=== PATIENT | male | born 1985 | race Caucasian/White ===

== ENCOUNTER 2017-07-26 00:39 | Inpatient (IN) | payer OTHER ==
[~2017-07-26] VITALS: Ht 177.8 cm; Wt 104.7 kg
[~2017-07-26 00:39] MED LIST: LISI-725 PO; MULT-506 PO
[2017-07-26 01:10] LABS: BASO % 0.6 %; BASO ABS # 0.06 K/uL (0-0.2); COMPLETE YES; HEMATOCRIT 49.5 % (42-52); IG% 0.2 %; LYMPH % 37.9 %; LYMPH ABS # 3.65 K/uL (1.2-3.4); MEAN CELL VOLUME 91.8 fL (80-100); MEAN CORPUSCULAR HEMOGLOBIN 34.3 pg (25-34); MEAN CORPUSCULAR HGB CONC 37.4 g/dl (32-36); MEAN PLATELET VOLUME 10.1 fL (7.4-10.4); MONO % 7.8 %; NEUT % 51.5 %; PLATELET COUNT 292 K/uL (130-400); RED BLOOD COUNT 5.39 M/uL (4.7-6.1); WHITE BLOOD COUNT 9.62 K/uL (4.8-10.8)
[2017-07-26 01:11] LABS: URINE APPEARANCE CLOUDY (CLEAR); URINE BILIRUBIN NEG (NEG); URINE COLOR YELLOW; URINE NITRITE NEG (NEG); URINE PH 5.5 (4.5-7.5); URINE SPECIFIC GRAVITY 1.011 (1.000-1.030); UROBILINOGEN NEG (NEG); ZZUR CULT IF INDIC CLEAN CATCH YES
[2017-07-26 01:12] LABS: MANUAL MICROSCOPIC REQUIRED? YES; REVIEW REQ? NO
[2017-07-26 01:29] LABS: ALT/SGPT 42 U/L (12-78); AST/SGOT 31 U/L (15-37); BLOOD UREA NITROGEN 7 mg/dl (7-18); BUN/CREATININE RATIO 7.8 (10-20); CALCIUM 8.2 mg/dl (8.5-10.1); CARBON DIOXIDE 27 mmol/L (21-32); CHLORIDE 104 mmol/L (98-107); CREATININE 0.92 mg/dl (0.60-1.40); GLUCOSE 97 mg/dl (70-99); POTASSIUM 3.9 mmol/L (3.5-5.1); SODIUM 138 mmol/L (136-145)
[2017-07-26 01:36] LABS: BENZODIAZEPINE, URINE NEG (NEG); COCAINE,URINE NEG (NEG); PHENCYCLIDINE, URINE NEG (NEG)
[2017-07-26 01:40] LABS: ALKALINE PHOSPHATASE 85 U/L (45-117)
[2017-07-26 01:46] LABS: ACETAMINOPHEN < 2 ug/ml (10-30)
[2017-07-26] MEDS ORDERED: POTA99TA PO (01:59)
[2017-07-26 02:00] LABS: URINE BACTERIA 1+ (NEG); URINE RBC 0-4 /hpf (0-4); URINE WBC >30 /hpf (0-5)
--- NOTE | 2017-07-26 05:39 | EMERGENCY ROOM VISIT NOTE ---
History Report prepared by Marcoibparminder: Jaime Valentine Under the Supervision of: Dr. Maggie Yeager M.D. First contact with patient: 00:49 Chief Complaint: MENTAL HEALTH EVALUATION Stated Complaint: MR History of Present Illness The patient is a 32 year old male who presents to the Emergency Room with complaints of persistent suicidal ideation beginning nearly a year ago. The patient admits to sending text messages to his ex- which proclaimed suicidal ideation. He states "I have no reason to be alive". He has never seen a psychiatrist before. The patient states that he has been struggling with these thoughts ever since his marriage ended four months ago. He states that he has still been in touch with his ex- due to having children with her. He states that he has joint custody of the children, and moves them between households. The patient states "I just felt like my children would be better off without me". He states that he has had thoughts of jumping in front of a truck, and had a plan to shoot himself. He is unsure why he has not hurt himself yet. The patient admits to drinking 6-7 beers today. He states that he drinks often, but less than he used to. He denies any other drug use. He smokes a pack of cigarettes per day. Source of History: patient Onset: Nearly a year ago Quality: other (suicidal ideation) Timing: other (persistent) Review of Systems See HPI for pertinent positives & negatives. A total of 10 systems reviewed and were otherwise negative. Past Medical & Surgical Medical Problems: (1) PETER (generalized anxiety disorder) (2) HTN (hypertension) Social History Problems: (1) Alcohol abuse Family History No pertinent family history stated. Social History Smoking Status: Current Every Day Smoker Marital Status: Housing Status: lives alone Occupation Status: employed Current/Historical Medications Scheduled Lisinopril (Zestril), 20 MG PO DAILY Potassium (Potassium), 99 MG PO DAILY Allergies Coded Allergies: Penicillins (Verified Allergy, Unknown, unknown, 07/26/17) Physical Exam Vital Signs Date Time Temp Pulse Resp B/P (MAP) Pulse Ox O2 Delivery O2 Flow Rate FiO2 07/26/17 06:59 75 16 132/84 96 Room Air 07/26/17 02:35 73 18 123/89 96 Room Air 07/26/17 00:41 36.4 78 20 132/90 97 Room Air Physical Exam Vital signs reviewed. Psych: positive suicidal ideation. Negative homicidal ideation. Positive access to weapons. General: Well-appearing male, in no significant distress. Appears to be intoxicated. HEENT: No scleral icterus, PERRLA, neck supple. Atraumatic. Cardiovascular: Regular rate and rhythm, no extra sounds. Pulmonary: Clear to auscultation bilaterally, normal work of breathing. Abdomen: Soft, nontender, nondistended, positive bowel sounds. Musculoskeletal: Atraumatic, no peripheral edema. Neurologic: Patient awake alert and oriented x 3 Skin: Warm, dry, no rash Medical Decision & Procedures Laboratory Results 07/26/17 00:58 Red Blood Count 5.39, Mean Corpuscular Volume 91.8, Mean Corpuscular Hemoglobin 34.3, Mean Corpuscular Hemoglobin Concent 37.4, Mean Platelet Volume 10.1, Neutrophils (%) (Auto) 51.5, Lymphocytes (%) (Auto) 37.9, Monocytes (%) (Auto) 7.8, Eosinophils (%) (Auto) 2.0, Basophils (%) (Auto) 0.6, Neutrophils # (Auto) 4.95, Lymphocytes # (Auto) 3.65, Monocytes # (Auto) 0.75, Eosinophils # (Auto) 0.19, Basophils # (Auto) 0.06 07/26/17 00:58 Test 07/26/17 00:55 07/26/17 00:58 Urine Color YELLOW Urine Appearance CLOUDY (CLEAR) Urine pH 5.5 (4.5-7.5) Urine Specific [place] 1.011 (1.000-1.030) Urine Protein NEG (NEG) Urine Glucose (UA) NEG (NEG) Urine Ketones NEG (NEG) Urine Occult Blood NEG (NEG) Urine Nitrite NEG (NEG) Urine Bilirubin NEG (NEG) Urine Urobilinogen NEG (NEG) Urine Leukocyte Esterase MODERATE (NEG) Urine WBC (Auto) /hpf (0-5) Urine RBC (Auto) /hpf (0-4) Urine Hyaline Casts (Auto) /lpf (0-5) Urine Epithelial Cells (Auto) /lpf (0-5) Urine Bacteria (Auto) (NEG) Urine RBC 0-4 /hpf (0-4) Urine WBC >30 /hpf (0-5) Urine Epithelial Cells >30 /lpf (0-5) Urine Bacteria 1+ (NEG) Urine Opiates Screen NEG (NEG) Urine Methadone, Qualitative NEG (NEG) Urine Barbiturates NEG (NEG) Urine Phencyclidine (PCP) Level NEG (NEG) Ur Amphetamine/Methamphetamine NEG (NEG) MDMA (Ecstasy) Screen NEG (NEG) Urine Benzodiazepines Screen NEG (NEG) Urine Cocaine Metabolite NEG (NEG) Urine Marijuana (THC) NEG (NEG) White Blood Count 9.62 K/uL (4.8-10.8) Red Blood Count 5.39 M/uL (4.7-6.1) Hemoglobin 18.5 g/dL (14.0-18.0) Hematocrit 49.5 % (42-52) Mean Corpuscular Volume 91.8 fL (80-100) Mean Corpuscular Hemoglobin 34.3 pg (25-34) Mean Corpuscular Hemoglobin Concent 37.4 g/dl (32-36) Platelet Count 292 K/uL (130-400) Mean Platelet Volume 10.1 fL (7.4-10.4) Neutrophils (%) (Auto) 51.5 % Lymphocytes (%) (Auto) 37.9 % Monocytes (%) (Auto) 7.8 % Eosinophils (%) (Auto) 2.0 % Basophils (%) (Auto) 0.6 % Neutrophils # (Auto) 4.95 K/uL (1.4-6.5) Lymphocytes # (Auto) 3.65 K/uL (1.2-3.4) Monocytes # (Auto) 0.75 K/uL (0.11-0.59) Eosinophils # (Auto) 0.19 K/uL (0-0.5) Basophils # (Auto) 0.06 K/uL (0-0.2) RDW Standard Deviation 40.0 fL (36.4-46.3) RDW Coefficient of Variation 11.8 % (11.5-14.5) Immature Granulocyte % (Auto) 0.2 % Immature Granulocyte # (Auto) 0.02 K/uL (0.00-0.02) Anion Gap 7.0 mmol/L (3-11) Est Creatinine Clear Calc Drug Dose 138.4 ml/min Estimated GFR () 126.2 Estimated GFR (Non- 108.9 BUN/Creatinine Ratio 7.8 (10-20) Calcium Level 8.2 mg/dl (8.5-10.1) Total Bilirubin 0.3 mg/dl (0.2-1) Direct Bilirubin < 0.1 mg/dl (0-0.2) Aspartate Amino Transf (AST/SGOT) 31 U/L (15-37) Alanine Aminotransferase (ALT/SGPT) 42 U/L (12-78) Alkaline Phosphatase 85 U/L (45-117) Total Protein 7.8 gm/dl (6.4-8.2) Albumin 3.9 gm/dl (3.4-5.0) Thyroid Stimulating Hormone (TSH) 5.690 uIu/ml (0.300-4.500) Salicylates Level 3.1 mg/dl (2.8-20) Acetaminophen Level < 2 ug/ml (10-30) Ethyl Alcohol mg/dL 205.0 mg/dl (0-3) Laboratory results per my review. ED Course 0106: Past medical records reviewed. The patient was evaluated in room A7. A complete history and physical examination was performed. 0640: The patient was accepted at [address] [place] [address]. He will be evaluated for further management. Medical Decision Differential diagnosis: Etiologies such as mood disorder, infection, hypoglycemia, electrolyte abnormalities, cardiac sources, intracerebral event, toxicologic, neurologic, as well as others were entertained. This patient was evaluated and appeared to be in no significant distress. Patient's blood alcohol is just over 200. He was observed in the emergency department until he was medically cleared. Mental health evaluated the patient and inpatient treatment is recommended. The patient was signed in on a voluntary basis. He was accepted to [facility]. Medication Reconcilliation Current Medication List: was personally reviewed by me Blood Pressure Screening Patient's blood pressure: Normal blood pressure Blood pressure disposition: Did not require urgent referral Impression Primary Impression: Suicidal ideation Additional Impression: Alcohol intoxication Scribe Attestation The scribe's documentation has been prepared under my direction and personally reviewed by me in its entirety. I confirm that the note above accurately reflects all work, treatment, procedures, and medical decision making performed by me. Departure Information Dispostion [facility] ([address] [place] [address]) Referrals No Doctor, Assigned (PCP) Forms HOME CARE DOCUMENTATION FORM, IMPORTANT VISIT INFORMATION Patient Instructions My [facility] Problem Qualifiers
[2017-07-26 06:59] VITALS: O2SAT 96
[2017-07-26 07:41] VITALS: BP 132/84; PULSE 88; TEMP 36.4; Ht 177.8 cm; Wt 104.7 kg
[2017-07-26] MEDS ORDERED: LORAZEPAM 1 MG TAB PO PRN (08:00)
[2017-07-26] MEDS ORDERED: ACETAMINOPHEN 325 MG TAB PO PRN (08:00)
[2017-07-26] MEDS ORDERED: BISMUTH SUBSALICYLATE PER ML OMNICELL CHARGE PO PRN (08:00)
[2017-07-26] MEDS ORDERED: NICOTINE POLACRILEX 2 MG GUM MT PRN (08:00)
[2017-07-26] MEDS ORDERED: ALUMINUM/MAGNESIUM SUSP 30 ML UDC PO PRN (08:00)
[2017-07-26] MEDS ORDERED: hydrOXYzine HCL 25 MG TAB PO PRN ×2 (08:00)
[2017-07-26] MEDS ORDERED: SODIUM CHLORIDE 0.65% NA SOLN 45 ML (OCEAN) PRN (08:00)
[2017-07-26] MEDS ORDERED: MAGNESIUM HYDROXIDE SUSP 30 ML UDC PO PRN (08:00)
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
[2017-07-26] MEDS: LISINOPRIL 20 MG TAB PO SCH (09:09)
[2017-07-26] MEDS: NICOTINE 21 MG/24 HR TDSY TD SCH (09:09)
[2017-07-26] MEDS ORDERED: SERTRALINE HCL 50 MG TAB PO ONE (09:56)
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
[2017-07-26 13:01] VITALS: BP 147/95; PULSE 89; TEMP 36.9
[2017-07-26 16:00] VITALS: BP 155/91; PULSE 71; TEMP 36.8
[2017-07-26 22:12] VITALS: BP 138/87; PULSE 64; TEMP 36.5
[2017-07-27 06:44] VITALS: BP_SYST 124; BP_SYST 130; BP_DIAS 78; BP_DIAS 91; PULSE 73; PULSE 83; TEMP 36.9
[2017-07-27 08:01] VITALS: BP 136/86; PULSE 66; TEMP 36.8
[2017-07-27] MEDS: POTASSIUM GLUCONATE 99 MG PO SCH (08:49)
[2017-07-27] MEDS: LISINOPRIL 20 MG TAB PO SCH (08:50)
[2017-07-27] MEDS: NICOTINE 21 MG/24 HR TDSY TD SCH (08:51)
[2017-07-27] MEDS ORDERED: POTASSIUM 99 MG PO SCH (09:00)
[2017-07-27] MEDS ORDERED: SERTRALINE HCL 100 MG TAB PO SCH (09:00)
--- NOTE | 2017-07-27 11:17 | Psychiatric Progress Notes ---
Progress Note Date of Service Jul 27, 2017. Interval History Luigi Saldivar is a 32-year-old male from [facility], who was brought to the ED by the police after texting suicidal messages to his ex . He is admitted on a 201, with a back up 302 petitioner's statement from the civil engineering manager. Chief Complaint "I'm fine". Subjective Patient was seen & assessed interval progress reviewed with Treatment Team. Staff report he has been refusing all groups, is irritable, and is focused on discharge, stating he does not want to miss work. He spent some time in the day room watching television with peers, and reported anxiety. His parents came to drop off belongings, but he did not want to visit with them. He initially did not want staff to talk to his family, but today signed a release to allow us to talk with his mother for collateral information. His mother told staff that she thinks he has been depressed for years, and that it got worse after his divorce. She notes he becomes easily frustrated and angry, and has noted decreased appetite, lack of enjoyment, decreased motivation, and social withdrawal. She has also noticed that he is obsessed with germs, does not like being touched, and does not like others going through his belongings. He is made statements to his mother that he is "tired and can't take it anymore, " but not suicidal statements. She is aware that he drinks alcohol, but has not noted excessive use. His father has but he did his gun, and is willing to secure his guns prior to discharge. Today, the patient states that his mood is "fine, I just want to get back home." He later states that it's a good thing he was admitted to the hospital, as he was able to start on medications for anxiety, and says "maybe I had issues I didn't know I had, they're there all the time, even if I don't think about them." He says he is willing to give medication a try, "even though it something I'm against," but continues to refuse therapy, stating "I'm not big on sitting down and talking to people, therapy." He says he like to deal with his symptoms by decreasing alcohol use, as he recognizes that his drinking played a role, then says he doesn't really want to decrease how frequently he drinks, but just does not want to drink excessively. He notes that he tends to stay busy to distract himself from how he is feeling, and is missing that here. When we discussed his mother's observations about his depressive symptoms, he admits that this is likely accurate, but then quickly changes the subject, and talks about all the reasons that he doesn't need to be here. He is refusing a family meeting, stating he is "not interested in it," but when asked if anyone had explained what it entails to him, he says no. After discussing the goals of the family meeting, he continues to decline it, giving multiple reasons, including that he does not see his family very much, lives alone, and doesn't need them to help him. He says he has thought more about the recommendation to get the guns out of his home, and thinks he would be willing to do this, but then says there is no one that he "really trusts" to hold them for him. He denies symptoms of alcohol withdrawal and has not scored on the AWSS protocol, and denies side effects to medication. Sleep Information Total Hours of Sleep: 9.25 Meal Information Percent of Breakfast Consumed: 100 Percent of Lunch Consumed: 25 Percent of Dinner Consumed: 50 Mental Status Exam During interview pt is: alert and oriented, guarded Appearance: appropriately dressed, appropriately groomed Eye contact is: fair Motor behavior is: steady gait & station, no abnormal motor movements Speech: normal in rate, rhythm & volume Affect: depressed, anxious, constricted, other (incongruent with stated mood) Mood is: other ("fine") Thought process: goal directed Thought content: reality based without delusions Suicidal thought are: denied Homicidal thoughts are: denied Hallucinations: denies auditory, denies visual Cognition: attention grossly intact, language grossly intact Intelligence estimated to be: average Insight: impaired Judgement: impaired Impression 32 yo male who texted suicidal messages to his ex , with specific plans to use a gun, and has access to guns. His is now minimizing this, wanting to leave the hospital as soon as possible. He denies prolonged depression, but his mother reports he has been depressed for years, and that it worsened since his divorce. He did admit to chronic anxiety and OCD traits, and was willing to start and SSRI, so was started on sertraline on admission. Clearly alcohol has been a problem in the past, and is currently giving varying reports of his daily drinking, but also likely minimizing this. We have discussed recommendations for abstinence, and he is willing only to try not to drink excessively. He is refusing all groups, a family meeting, and refusing a referral for therapy. At this time he requires inpatient care due to the severity of his condition and the risk for suicide if discharged. Plan (1) Depressive disorder, not elsewhere classified 07/26 - Start Zoloft 25 mg. today increasing to 50 mg tomorrow. R/B/A reviewed and accepted including black box warning - Obtain supplemental information - Family meeting if indicated - Q 15 min checks for safety - Encourage participation in group and individual counseling - The patient will need psychiatric aftercare. 07/27 - Reviewed recommendations for a family meeting and what this would entail, but the patient is refusing. He did allow staff to talk with his mother, who reported years of depressive symptoms. - Recommend that family secure guns prior to discharge. - Increase sertraline to 100 mg daily for tomorrow. - Referred for psychiatric follow-up; he is refusing a referral for therapy. (2) PETER (generalized anxiety disorder) 07/26 - zoloft as above - Continue to explore the OCD traits - Assist the patient to explore mindfulness (3) Alcohol abuse 07/26 - The patient's AUDIT score suggests problematic drinking (Zone III WHO). Brief intervention was offered and accepted Intervention was greater than 5 min in length. Brief interventions include: 1. Assess Readiness to Quit, 2. Advise: Help Patient to Reduce or Abstain from Alcohol, 3. Agree: Set Specific, Feasible Goals, 4. Assist: Anticipate barriers, Problem-Solving Solutions. Social work to 5. Arrange: Referrals to appropriate treatment. Summary of intervention: The patient is in precontemplation stage with regards to transtheoretical model of change. The patient is advised to decrease alcohol consumption due to depressant effects and risk of interactions with prescription medications. The patient agreed to decrease consumption, and will be provided with recovery materials to continue to education self on how to cope with their condition without drinking. - AWSS 07/27 - denies symptoms of withdrawal and has not scored on on his, so will discontinue. (4) HTN (hypertension) 07/26 - Continue home dose of lisinopril - Monitor BP Has been reviewed with Dr. 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 Needs: To abstain from alcohol Risk Factors Assessment Male: Yes : Yes /single/: Yes Higher / Fall in social status: No Health problems: Yes Mental Health Diagnoses: No Substance use disorders: Yes Previous attempt: No Previous psychiatric stay: No Hopelessness: No Smoker: Yes Protective Factors Assessment Confucianism beliefs: No : No Responsible for young children: Yes Employed: Yes Stable relationships: No Supportive family: Yes Data Vital Signs Last 24 Hrs: Date Time Temp Pulse Resp B/P (MAP) Pulse Ox O2 Delivery O2 Flow Rate FiO2 07/27/17 08:01 36.8 66 16 136/86 07/27/17 06:44 36.9 73 17 124/78 83 130/91 07/26/17 22:12 36.5 64 16 138/87 07/26/17 16:00 36.8 71 18 155/91 07/26/17 13:01 36.9 89 18 147/95 Meds Administered Last 24 Hrs: Meds Administered (Past 24Hrs) Medications (Trade) Dose Ordered Sig/Rosalba Route Start Time Stop Time Status Last Admin Dose Admin Lisinopril (Zestril Tab) 20 mg DAILY PO 07/26/17 09:00 08/25/17 08:59 07/27/17 08:50 20 MG Nicotine (Nicoderm Cq 21MG Patch) 1 patch QAM TD 07/26/17 09:00 08/25/17 08:59 07/27/17 08:51 1 PATCH Sertraline HCl (Zoloft Tab) 50 mg QAM PO 07/27/17 09:00 08/26/17 08:59 07/27/17 08:50 50 MG Sertraline HCl (Zoloft Tab) 25 mg 0956 ONCE PO 07/26/17 09:56 07/26/17 10:01 DC 07/26/17 10:23 25 MG Potassium Gluconate (Potassium Gluconate) 99 mg QAM PO 07/27/17 09:00 08/26/17 08:59 07/27/17 08:49 99 MG
--- NOTE | 2017-07-27 22:40 | Medical Student: BHU Only ---
Psychiatric Progress Note Date of Service: Jul 27, 2017. SUBJECTIVE: The patient was seen and assessed today, and progress was reviewed with Treatment Team. The patient reports doing "fine". Sleep was "ok"; noted to be for 9 hours by staff. According to the staff notes, Osmin is refusing group programming, is irritable and focused on discharge. He grew anxious when we discussed the disturbance of his normal routine, and is especially concerned about missing work. His parents stopped by to drop off some belongings, he had no interest in visiting with them, however, he did sign a release allowing the staff to speak with his mother for collateral information. She denies Osmin ever making suicidal statements, but endorses Osmin being easily frustrated, having decreased appetite, and being more withdrawn since his divorce. She also endorses Osmin's obsession over germs. Osmin's mood is "fine, better if I were going home." Even though Osmin refuses group programming because he "doesn't feel like talking to anyone," he is still onboard with taking his new medication to treat his anxiety. "I'm glad I came to the hospital so I didn't end up hurting myself...maybe this helped me get help for my anxiety and OCD." Osmin wants to cut down on the amount of alcohol he consumes. He continues to minimize his alcohol abuse, saying that he doesn' t want to cut back on the frequency that he drinks, just the amount each time. He is also agreeable to removing firearms from the home, but does not know where he would trust moving them to yet. ROS: per HPI MSE: Appearance is that of a casually dressed male who appears his stated age. The patient is generally cooperative with the interview, but irritable and short with answers. Eye contact is fair Motor behavior is normal, no abnormal movements Speech: normal in rate rhythm and volume Affect: anxious, constricted, irritable Mood: "fine" Thought process: goal directed Thought content: denies SI and HI, reality based Perception: denies visual and auditory hallucinations Cognition: Intelligence average, attention and language grossly intact Insight is estimated to be impaired Judgment is estimated to be impaired DIAGNOSTIC IMPRESSION: Sanchez Saldivar is a 32 year old man admitted to the [facility] with suicidal ideations with a plan. He sent text messages to his ex- with plans to use a gun, to which he has easy access. He denies depression, endorses anxiety and "OCD" traits. He has a history of alcohol abuse, and provides conflicting reports as to how much he drinks on a usual basis. He agreed to starting Zoloft 50 mg for treatment of his generalized anxiety. We should watch for symptoms of alcohol withdrawal, and continue to counselling psychologist him on his alcohol abuse. RECOMMENDATIONS: 1. Suicidal Ideation/Depressive Disorder -Reported suicidal ideation last night, but denies it today -Seek collateral information from either co-workers or family members -Q 15 min checks for safety -Encourage Participation in groups -Zoloft 50 mg PO Daily 2. Alcohol Abuse Disorder: Chronic, active -FANNIE was 205 when tested in ED. Endorses drinking anywhere from "a few beers a night" to 6-7 per night, with periods of heavier binging dispersed among those days, including last night -The patient is in precontemplation stage with regards to transtheoretical model of change. The patient is advised to decrease alcohol consumption due to depressant effects and risk of interactions with prescription medications. -Continue to counselling psychologist and encourage abstinence 3. Generalized Anxiety Disorder: Possible OCD -Continue to explore Mr. Saldivar's OCD attributes -Zoloft as above 4. Hypertension: stable -Continue home dose of Lisinopril 20 mg PO daily -Monitor BP
[2017-07-28 06:51] VITALS: BP_SYST 144; BP_SYST 145; BP_DIAS 91; BP_DIAS 95; PULSE 68; PULSE 78; TEMP 37
[2017-07-28] MEDS: LISINOPRIL 20 MG TAB PO SCH (07:46)
[2017-07-28] MEDS: NICOTINE 21 MG/24 HR TDSY TD SCH (07:46)
[2017-07-28] MEDS: POTASSIUM GLUCONATE 99 MG PO SCH (07:46)
[2017-07-28] MEDS ORDERED: SERTRALINE HCL 100 MG TAB PO SCH (09:00)
[2017-07-28] MEDS ORDERED: ZLF/100 PO (12:08)
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
[2017-07-29 15:37] LABS: SYNTHETIC CANNABINOIDS QL URIN NEGATIVE (Negative)
== END 2017-07-28 14:01 | disposition home or self-care (01) | DRG 881 ==
LOC: C.EDB 00:40 → C.MHU 07:01
PROVIDERS: ADMIT Psychiatry & Neurology Child & Adolescent Psychiatry; ATTEND Psychiatry & Neurology Psychiatry
DX: F32.9 Major depressive disorder, single episode, unspecified (principal); R45.851 Suicidal ideations; F41.1 Generalized anxiety disorder; I10 Essential (primary) hypertension; F10.120 Alcohol abuse with intoxication, uncomplicated; F17.200 Nicotine dependence, unspecified, uncomplicated; Z88.0 Allergy status to penicillin